=== PATIENT | female | born 1970 | race Caucasian/White ===

== ENCOUNTER 2017-03-26 08:55 | Emergency (ER) | payer BC ==
--- NOTE | ~2017-03-26 | CT16 ---
[facility] A Service of [facility] RADIOLOGY TEXT RESULTS PATIENT: AGAPITO REYNOSO LOCATION: SED : 74 UNIT #: [id number] AGE: [address]: Sydnie Peoples MD SEX: F ORDER DR: [id number] [address] [address] [id number] E MR#: [id number] Acc #: [id number] NAME: AGAPITO REYNOSO : 1970 SEX: F STUDY DATE/TIME: 03/26/2017 10:50 UNIT: SED ROOM: STUDY DESCRIPTION: CT Angio Chest for PE Attending Physician: Sydnie Peoples M.D. Ordering Physician: Sydnie Peoples M.D. Primary Care Physician: Primary Care Physician No MEDICAL IMAGING REPORT This report is preliminary unless electronic signature is present. EXAM Chest CTA 03/26 INDICATIONS Chest and left shoulder pain that started at 6 o'clock this morning. Shortness of air. History of smoking. TECHNIQUE Axial images were obtained through the chest following IV contrast administration. 3-D reformats were obtained. This CT exam was performed with one or more of the following radiation dose reduction techniques: automatic exposure control, adjustment of mA and/or kV according to patient size, and iterative reconstruction. COMPARISON No comparison chest CT FINDINGS There is no pulmonary embolism or aortic dissection. There is no pleural or pericardial effusion. There is emphysema. There is an apparent left hilar mass measuring 2.2 x 3.4 cm. This is concerning for malignancy. There is some mild adjacent infiltrate in the lingula; this could reflect a mild postobstructive pneumonia. This is not a amendable to percutaneous sampling. Consider PET CT for follow up. Lungs are otherwise clear. No mediastinal or axillary adenopathy is seen. There is no right hilar adenopathy. Upper abdomen is unremarkable. No suspicious osseous lesions are seen. IMPRESSION 1. No pulmonary embolism or aortic dissection. 2. Emphysema. 3. Findings are worrisome for a small malignant mass in the left inferior pulmonary hilum measuring 3.4 x 2.2 cm. [facility] Service of [facility] RADIOLOGY TEXT RESULTS PATIENT: AGAPITO REYNOSO LOCATION: SED : 74 UNIT #: [id number] AGE: [address]: Sydnie Peoples MD SEX: F ORDER DR: percutaneous sampling. In the adjacent lingula, there is a minimal infiltrate which could reflect a mild degree of postobstructive pneumonia. There is no other evidence of malignancy in the chest. Consider PET CT for follow up. Dictated by... Vinod Mandel Jr., M.D. THIS IS AN ELECTRONICALLY VERIFIED REPORT Vinod Mandel Jr., M.D. at 03/27/2017 8:29 AM TED/megan TD: 03/26/2017 19:19 JOB #: [id number] MEDICAL IMAGING REPORT Page 1 of 1
--- NOTE | ~2017-03-26 | CR72 ---
[facility] A Service of [facility] RADIOLOGY TEXT RESULTS PATIENT: AGAPITO REYNOSO LOCATION: SED : 74 UNIT #: [id number] AGE: [address]: Sydnie Peoples MD SEX: F ORDER DR: [id number] [place] [id number] E MR#: [id number] Acc #: [id number] NAME: AGAPITO REYNOSO : 1970 SEX: F STUDY DATE/TIME: 03/26/2017 9:22 UNIT: SED ROOM: STUDY DESCRIPTION: CR Chest Single View Portable Attending Physician: Sydnie Peoples M.D. Ordering Physician: Sydnie Peoples M.D. Primary Care Physician: Primary Care Physician No MEDICAL IMAGING REPORT This report is preliminary unless electronic signature is present. EXAM Portable chest x-ray 03/26/2017 HISTORY Chest pain. Began 6 a.m. today. Back and left shoulder pain. TECHNIQUE AP lordotic view of the chest is presented COMPARISON 06/07/2015 FINDINGS Heart and mediastinum are normal in size and contour. Lung volumes lower than on prior examination. No acute pulmonary disease, pleural effusion or pneumothorax. No suspicious nodule. Bony structures unremarkable. Visualized upper abdomen unremarkable. Dictated by... Noel Travis M.D. THIS IS AN ELECTRONICALLY VERIFIED REPORT Noel Travis M.D. at 03/27/2017 7:30 PM JSK/megan TD: 03/26/2017 16:54 JOB #: [id number] MEDICAL IMAGING REPORT [facility] A Service of [facility] RADIOLOGY TEXT RESULTS PATIENT: AGAPITO REYNOSO LOCATION: SED : 74 UNIT #: [id number] AGE: [address]: Sydnie Peoples MD SEX: F ORDER DR: Page 1 of 1
--- NOTE | ~2017-03-26 | EKG ---
PATIENT: AGAPITO REYNOSO UNIT #: [id number] Ventricular Rate: 70 BPM Atrial Rate: 70 BPM P-R Interval: 128 ms QRS Duration: 68 ms Q-T Interval: 418 ms QTC Calculation(Bezet): 451 ms P [place]: 60 degrees Calculated R [place]: 45 degrees Calculated T [place]: 39 degrees Diagnosis Line: Normal sinus rhythm Diagnosis Line: Possible Left atrial enlargement Diagnosis Line: Borderline ECG Diagnosis Line: Diagnosis Line: Confirmed by ZENA ALICEA MD ([id number]) on Diagnosis Line: 03/28/2017 10:42:01 AM INTERPRETING MD: NIXON WONG
[~2017-03-26 08:55] MED LIST: BENZONATATE; NO MEDICATIONS; PREDNISONE; TYLENOL #3 PO; ZOFRAN ODT4 MG PO
[2017-03-26 09:51] LABS: BASOPHIL# 0.1 X10e3 (0-0.3); BASOPHIL% 0.8 % (0-2.5); DIFF IND NO; EOSINOPHIL# 0.4 X10e3 (0-0.7); EOSINOPHIL% 4.1 % (0.0-7.0); HEMATOCRIT 42.5 % (35.0-45.0); HEMOGLOBIN 14.6 gm/dL (12.0-16.0); LYMPHOCYTE# 1.9 X10e3 (1.0-3.5); LYMPHOCYTE% 21.5 % (17.0-45.0); MEAN CELL VOLUME 86.6 FL (83-96); MEAN CORPUSCULAR HEMOGLOBIN 29.8 PG (28-34); MEAN CORPUSCULAR HGB CONC 34.4 g/dL (30-36); MEAN PLATELET VOLUME 8.3 FL (6.5-11.5); MONOCYTE# 0.5 X10e3 (0-1.0); MONOCYTE% 5.2 % (3.0-12.0); NEUTROPHIL# 6.2 X10e3 (1.5-7.1); NEUTROPHIL% 68.4 % (40-75); PLATELET COUNT 240 X10e3 (140-420); RED BLOOD COUNT 4.91 X10e (3.90-5.30); RED CELL DISTRIBUTION WIDTH 13.5 % (11.0-15.5); WHITE BLOOD COUNT 9.1 X10e3 (4.0-10.5)
[2017-03-26 10:05] LABS: INR 1.1; PROTHROMBIN TIME (PATIENT) 12.1 SECONDS (9.5-12.4)
[2017-03-26 10:09] LABS: POC - CKMB 2.8 ng/mL (0.0-7.9); POC - TROPONIN <0.05 ng/mL (<=0.05)
[2017-03-26 10:12] LABS: PARTIAL THROMBOPLASTIN TIME 29.9 SECONDS (25.6-38.1)
[2017-03-26 10:14] LABS: ALBUMIN SERUM 4.1 g/dL (3.5-5.0); BILIRUBIN, DIRECT 0.1 mg/dL (0.0-0.2); BILIRUBIN,INDIRECT 0.9 mg/dL (0.0-0.9); CALCIUM SERUM 8.4 mg/dL (8.4-10.2); CREATININE SERUM 0.8 mg/dL (0.6-1.4); GLOM FILT RATE Estimated 89.7 mL/min (>60); POTASSIUM 3.5 mmol/L (3.5-5.1); PROTEIN TOTAL SERUM 7.6 g/dL (6.0-8.3)
== END 2017-03-26 11:51 | disposition home or self-care (01) ==
LOC: SED 08:55
PROVIDERS: Student in an Organized Health Care Education/Training Program
DX: J18.9 Pneumonia, unspecified organism (principal); Z90.49 Acquired absence of other specified parts of digestive tract; Z87.891 Personal history of nicotine dependence
CPT/HCPCS: 36415; 71010; 71275; 80048; 80076; 82553; 83735; 83874; 83880; 84484; 84703; 85025; 85610; 85730; 93005; 96361; 96374; 96375; 99285; J2270; J2405; Q9967